=== PATIENT | female | born 1950 | race Caucasian/White ===

== ENCOUNTER 2020-07-02 20:58 | Emergency (ER) | payer OTHER, MEDICARE ==
[~2020-07-02] VITALS: Ht 180.3 cm; Wt 72.6 kg
[2020-07-02 21:34] LABS: BASOPHILS ABSOLUTE AUTO 0.11 K/mm3 (0.00-0.23); BASOPHILS PERCENT AUTO 1 % (0-2); EOSINOPHILS ABSOLUTE AUTO 0.34 K/mm3 (0.00-0.68); EOSINOPHILS PERCENT AUTO 3 % (0-6); Hematocrit 39.4 % (33.0-51.0); Hemoglobin 12.8 g/dL (11.5-16.0); IMMATURE GRAN PERCENT AUTO 1 % (0-1); LYMPHOCYTES ABSOLUTE AUTO 1.98 K/mm3 (0.84-5.20); LYMPHOCYTES PERCENT AUTO 20 % (21-46); MONOCYTES ABSOLUTE AUTO 1.35 K/mm3 (0.16-1.47); MONOCYTES PERCENT AUTO 14 % (4-13); Mean Corpuscular HGB 27.5 pg (26.0-34.0); Mean Corpuscular HGB Conc 32.5 g/dL (31.5-36.5); Mean Corpuscular Volume 85 fL (80-100); Mean Platelet Volume 9.6 fL (9.1-12.4); NEUTROPHILS ABSOLUTE AUTO 6.03 K/mm3 (1.96-9.15); NEUTROPHILS PERCENT AUTO 61 % (41-73); Platelet Count 521 K/mm3 (150-400); RDW Coefficient Variation 14.5 % (11.7-14.2); RDW Standard Deviation 44.6 fL (35.1-46.3); Red Blood Cell Count 4.66 M/mm3 (3.80-5.20); White Blood Cell Count 9.91 K/mm3 (4.00-11.30)
[2020-07-02 21:55] LABS: Alanine Aminotransfer (ALT/SGP 19 U/L (12-78); Albumin, Blood 2.5 g/dL (3.4-5.0); Albumin/Globulin Ratio 0.5 (0.8-1.8); Alk Phos 83 U/L (50-136); Anion Gap 11 mmol/L (6-16); Aspartate Aminotrans (AST/SGOT 29 U/L (12-37); Bilirubin, Total 0.6 mg/dL (0.1-1.0); Blood Urea Nitrogen 9 mg/dL (8-24); Bun/Creatinine Ratio 10.4 (12.0-20.0); CO2, Blood 22 mmol/L (21-32); Calcium, Blood 9.2 mg/dL (8.5-10.1); Chloride, Blood 105 mmol/L (98-108); Creatinine, Blood 0.87 mg/dL (0.40-1.00); Globulin, Blood 4.7 g/dL (2.2-4.0); Glomerular Filtration Rate >60 (60-); Glucose, Blood 123 mg/dL (70-99); Magnesium, Blood 1.8 mg/dL (1.6-2.4); Sodium, Blood 138 mmol/L (136-145); Total Protein, Blood 7.2 g/dL (6.4-8.2); Troponin I <0.015 ng/mL (0.000-0.040)
[2020-07-02] MEDS ORDERED: ARTIFICIAL TEAR15 M2 BOTHEYES (22:24)
[2020-07-02] MEDS ORDERED: ASPI325 PO (22:25)
[2020-07-02] MEDS ORDERED: DICLOFONO2.5 GM TOP (22:26)
[2020-07-02] MEDS ORDERED: DIGOX250 MCG PO (22:27)
[2020-07-02] MEDS ORDERED: Atarax10 MG PO (22:27)
[2020-07-02] MEDS ORDERED: BASAGLAR K100 UNIT/1 (22:28)
[2020-07-02] MEDS ORDERED: METO100ER PO (22:29)
[2020-07-02] MEDS ORDERED: XARELTO20 MG PO (22:29)
[2020-07-02] MEDS ORDERED: Prednisone10 MG PO (22:29)
[2020-07-02] MEDS ORDERED: ZOLEDRONIC ACID4 M5 IM (22:30)
== END 2020-07-02 22:45 ==
LOC: ER 20:58
PROVIDERS: Emergency Medicine
DX: I48.91 Unspecified atrial fibrillation (principal); Z76.89 Persons encountering health services in other specified circumstances; Z79.4 Long term (current) use of insulin; Z79.899 Other long term (current) drug therapy; Z79.01 Long term (current) use of anticoagulants
CPT/HCPCS: 71045; 80053; 83735; 83880; 84484; 85025; 93005; 93010; 96374; 99285-25; A9270